=== PATIENT | female | born 1975 | race Caucasian/White ===

== ENCOUNTER 2016-12-24 08:25 | Emergency (ER) | payer OTHER ==
[2016-12-24] MEDS ORDERED: IOPAMIDOL 370 (76%) 100 ML VIAL IV ONE (08:26)
[2016-12-24 08:56] LABS: ABSOLUTE NEUTROPHIL COUNT 2.5 K/mm3 (1.8-7.7); BASO % 0.6 % (0.2-1.0); EOS % 0.8 % (0.9-2.9); HEMATOCRIT 41.9 % (37.0-47.0); HEMOGLOBIN 14.4 gm/l (12.0-16.0); IMM NEUT% 0.3 % (0-1); LYMPH # 0.7 (1.0-4.8); LYMPH % 19.2 % (15-45); MEAN CELL VOLUME 84.8 fl (81.0-99.0); MEAN CORPUSCULAR HEMOGLOBIN 29.1 pg (27.0-31.0); MEAN CORPUSCULAR HGB CONC 34.4 g/dl (33.0-37.0); MEAN PLATELET VOLUME 10.3 fl (7.4-10.4); MONO # 0.3 (0.0-0.8); NEUT % 70.1 % (43-75); PLATELET COUNT 143 K/mm3 (130-400); RED CELL DISTRIBUTION WIDTH 12.7 % (11.5-14.5)
[2016-12-24 09:14] LABS: ALB/GLOB RATIO 1.2 (>1.0); ALBUMIN 4.3 gm/dL (3.5-5.7); CALCIUM 9.3 mg/dL (8.6-10.3)
[2016-12-24 09:15] LABS: TROPONIN I < 0.01 ng/ml (0.0-0.06)
[2016-12-24 09:19] LABS: CKMB ISOENZYME 0.7 ng/ml (0.6-6.3)
[2016-12-24] MEDS ORDERED: ASPIRIN CHEWTAB 81 MG TABLET ONE (09:24)
--- NOTE | 2016-12-24 09:40 | CT ---
Exam: CT angiogram chest with contrast Comparison: None History: PE risk factors. Technique: CT angiogram of the chest was obtained following the administration of 80 mL Isovue-370 intravenous contrast using a CT angiogram pulmonary embolism protocol which was supplemented with multiplanar 3-D reformations constructed at an independent workstation. Findings: There is no evidence of acute pulmonary thromboembolic disease through the proximal subsegmental level. There is mild diffuse bronchial wall thickening without mucous plugging or atelectasis. There is no acute pulmonary parenchymal abnormality. Calcified nodule is noted within the right upper lobe. Minor paraseptal emphysema seen within the lung apices. There is no significant mediastinal or hilar lymphadenopathy by size criteria. There is no pleural or pericardial effusion. Tiny hiatal hernia is noted. Limited evaluation of the upper abdomen demonstrates cholecystectomy clips, right greater than left renal cortical scarring and a prominent spleen. No worrisome lytic or blastic osseous lesion is identified. IMPRESSION: No evidence of acute pulmonary thromboembolic disease. Chronic changes as above. Report called to Dr. Alvarado 0936 hours 12/24/2016.
== END 2016-12-24 11:05 | disposition home or self-care (01) ==
LOC: ED 08:25
DX: R07.9 Chest pain, unspecified (principal); Z87.891 Personal history of nicotine dependence
CPT/HCPCS: 85025; 82550; 82553; 80053; 84484; 71275; 99284 ×2; A9270; Q9967